=== PATIENT | male | born 1985 | race Caucasian/White ===

== ENCOUNTER → 2018-10-24 | Outpatient (CLI) | payer OTHER ==
[~2018-10-24] MED LIST: CEFU500T30 PO; Vsl#3 Capsule1 EACH PO
[2018-10-24 18:27] LABS: BASOPHILS ABSOLUTE AUTO 0.05 K/mm3 (0.00-0.23); BASOPHILS PERCENT AUTO 1 % (0-2); EOSINOPHILS ABSOLUTE AUTO 0.11 K/mm3 (0.00-0.68); EOSINOPHILS PERCENT AUTO 1 % (0-6); Hematocrit 45.5 % (37.0-53.0); Hemoglobin 15.4 g/dL (13.5-17.5); IMMATURE GRAN ABSOLUTE AUTO 0.01 K/mm3 (0.00-0.10); IMMATURE GRAN PERCENT AUTO 0 % (0-1); LYMPHOCYTES PERCENT AUTO 19 % (21-46); MONOCYTES ABSOLUTE AUTO 0.99 K/mm3 (0.16-1.47); MONOCYTES PERCENT AUTO 10 % (4-13); Mean Corpuscular HGB 28.8 pg (26.0-34.0); Mean Corpuscular HGB Conc 33.8 g/dL (31.5-36.5); Mean Corpuscular Volume 85 fL (80-100); Mean Platelet Volume 10.1 fL (9.1-12.4); NEUTROPHILS ABSOLUTE AUTO 6.64 K/mm3 (1.96-9.15); NEUTROPHILS PERCENT AUTO 69 % (41-73); Platelet Count 315 K/mm3 (150-400); RDW Coefficient Variation 11.3 % (11.7-14.2); RDW Standard Deviation 34.7 fL (35.1-46.3); Red Blood Cell Count 5.34 M/mm3 (4.30-5.90)
[2018-10-24 18:39] LABS: Alanine Aminotransfer (ALT/SGP 41 U/L (12-78); Albumin, Blood 4.4 g/dL (3.4-5.0); Albumin/Globulin Ratio 1.2 (0.8-1.8); Alk Phos 116 U/L (50-136); Anion Gap 4 mmol/L (6-16); Aspartate Aminotrans (AST/SGOT 18 U/L (12-37); Bilirubin, Total 0.7 mg/dL (0.1-1.0); Blood Urea Nitrogen 10 mg/dL (8-24); Bun/Creatinine Ratio 8.8 (12.0-20.0); CO2, Blood 31 mmol/L (21-32); Calcium, Blood 9.5 mg/dL (8.5-10.1); Chloride, Blood 103 mmol/L (98-108); Creatinine, Blood 1.14 mg/dL (0.60-1.20); Globulin, Blood 3.6 g/dL (2.2-4.0); Glomerular Filtration Rate >60 (60-); Glucose, Blood 95 mg/dL (70-99); Potassium, Blood 3.8 mmol/L (3.5-5.5); Sodium, Blood 138 mmol/L (136-145)
== END | disposition home or self-care (01) ==
LOC: LAB 18:19 → LAB SHORT 18:19
PROVIDERS: Physician Assistant
DX: L98.9 Disorder of the skin and subcutaneous tissue, unspecified (principal); R53.83 Other fatigue
CPT/HCPCS: 80053; 85025

== ENCOUNTER 2018-10-25 11:34 | Inpatient (IN) | payer OTHER ==
[~2018-10-25] VITALS: Ht 180.3 cm; Wt 81.7 kg
[2018-10-25 12:16] LABS: BASOPHILS ABSOLUTE AUTO 0.04 K/mm3 (0.00-0.23); BASOPHILS PERCENT AUTO 1 % (0-2); EOSINOPHILS ABSOLUTE AUTO 0.09 K/mm3 (0.00-0.68); EOSINOPHILS PERCENT AUTO 1 % (0-6); Hematocrit 44.6 % (37.0-53.0); Hemoglobin 15.3 g/dL (13.5-17.5); IMMATURE GRAN ABSOLUTE AUTO 0.02 K/mm3 (0.00-0.10); IMMATURE GRAN PERCENT AUTO 0 % (0-1); LYMPHOCYTES ABSOLUTE AUTO 1.46 K/mm3 (0.84-5.20); LYMPHOCYTES PERCENT AUTO 18 % (21-46); MONOCYTES ABSOLUTE AUTO 0.75 K/mm3 (0.16-1.47); MONOCYTES PERCENT AUTO 9 % (4-13); Mean Corpuscular HGB 29.8 pg (26.0-34.0); Mean Corpuscular HGB Conc 34.3 g/dL (31.5-36.5); Mean Corpuscular Volume 87 fL (80-100); Mean Platelet Volume 9.8 fL (9.1-12.4); NEUTROPHILS ABSOLUTE AUTO 5.73 K/mm3 (1.96-9.15); NEUTROPHILS PERCENT AUTO 71 % (41-73); Platelet Count 298 K/mm3 (150-400); RDW Coefficient Variation 11.2 % (11.7-14.2); RDW Standard Deviation 35.8 fL (35.1-46.3); Red Blood Cell Count 5.13 M/mm3 (4.30-5.90); White Blood Cell Count 8.09 K/mm3 (4.00-11.30)
[2018-10-25 12:41] LABS: Alanine Aminotransfer (ALT/SGP 36 U/L (12-78); Albumin, Blood 4.2 g/dL (3.4-5.0); Albumin/Globulin Ratio 1.1 (0.8-1.8); Alk Phos 116 U/L (50-136); Anion Gap 7 mmol/L (6-16); Aspartate Aminotrans (AST/SGOT 17 U/L (12-37); Bilirubin, Total 0.9 mg/dL (0.1-1.0); Blood Urea Nitrogen 13 mg/dL (8-24); Bun/Creatinine Ratio 10.7 (12.0-20.0); CO2, Blood 27 mmol/L (21-32); Calcium, Blood 9.2 mg/dL (8.5-10.1); Chloride, Blood 105 mmol/L (98-108); Creatinine, Blood 1.21 mg/dL (0.60-1.20); Globulin, Blood 3.9 g/dL (2.2-4.0); Glomerular Filtration Rate >60 (60-); Glucose, Blood 95 mg/dL (70-99); Sodium, Blood 139 mmol/L (136-145); Total Protein, Blood 8.1 g/dL (6.4-8.2)
[2018-10-25 12:42] LABS: Troponin I <0.015 ng/mL (0.000-0.040)
[2018-10-25 12:45] LABS: Magnesium, Blood 2.2 mg/dL (1.6-2.4)
[2018-10-25 12:50] LABS: Thyroid Stimulating Hormone 1.94 uIU/mL (0.360-4.800)
--- NOTE | 2018-10-25 15:11 | NUR ---
Echocardiogram completed.
--- NOTE | 2018-10-25 15:30 | NUR ---
PT ARRIVED TO PCU 16 VIA GURNEY FROM ED. REPORT WAS GIVEN, PT IS ABLE TO STAND AND TRANSFER TO BED INDEP, HE IS A/OX3, PLEASANT AND COOPERATIVE WITH CARE, FOLLOWS COMMANDS WELL, DENIES ANY SYMPTOMS AT THIS TIME, STATES HIS SYMPTOMS STARTED THIS AM, JUST CHEST HEAVINESS, NO DIZZINESS OR SOB, LUNGS ARE CLEAR T/O, RESP EVEN AND UNLABORED, NO COUGH NOTED, HRIRR, TELE IN PLACE RUNNING 2 BLOCK, SEE STRIP, NO EDEMA NOTED, IV SITE TO ROSS, SITE IS CLEAR AND PATENT, BTX4, ABD FLAT SOFT NONTENDER, VOIDS WITHOUT DIFF, SKIN HAS RASH TO LEFT HIP, WITH SOME HIP DISCOMFORT, MAEW, PARKER, CALL LIGHT IN REACH.
--- NOTE | 2018-10-25 18:00 | NUR ---
PT HEART RHYTHM IS UNCHANGED, HIS RATE IS IN THE 70'S TO 80'S, NOT SYMPTOMATIC. NO ACUTE CHANGES, CALL LIGHT IN REACH.
--- NOTE | 2018-10-25 20:24 | NUR ---
CARE ASSUMPTION PT A&O X4. VSS. RASH NOTED ON L OUTER HIP REGION. PT REPORTS RASH BEING PRESENT FOR LAST 2 WEEKS. EPISODE OF UNWITNESSED EMESIS @ APPROX 2000 IN WHICH PT REPORTS BRIEFLY GETTING LIGHTHEADED. PT DENIES NAUSEA PRIOR TO EMESIS AND DENIES WANT/NEED FOR PRN IV ANTIEMETIC. PT DENIES OTHER SYSMPTOMS AND STATES "IT CAME OUT OF NOWHERE. I GUESS I JUST HAD TO GET IT OUT OF MY SYSTEM." WILL CONTINUE TO MONITOR AND PROVIDE CARE.
--- NOTE | 2018-10-25 20:50 | NUR ---
PT REPORTING SECOND EPISODE OF EMESIS THIS SHIFT. PT MEDICATED W/ ZOFRAN PER EMAR/PT REQUEST. WILL CONTINUE TO MONITOR AND PROVIDE CARE.
[2018-10-26 04:27] LABS: BASOPHILS ABSOLUTE AUTO 0.04 K/mm3 (0.00-0.23); BASOPHILS PERCENT AUTO 0 % (0-2); EOSINOPHILS PERCENT AUTO 0 % (0-6); Hematocrit 42.9 % (37.0-53.0); Hemoglobin 14.8 g/dL (13.5-17.5); IMMATURE GRAN ABSOLUTE AUTO 0.05 K/mm3 (0.00-0.10); IMMATURE GRAN PERCENT AUTO 0 % (0-1); LYMPHOCYTES ABSOLUTE AUTO 0.96 K/mm3 (0.84-5.20); LYMPHOCYTES PERCENT AUTO 6 % (21-46); MONOCYTES ABSOLUTE AUTO 0.56 K/mm3 (0.16-1.47); MONOCYTES PERCENT AUTO 4 % (4-13); Mean Corpuscular HGB 29.2 pg (26.0-34.0); Mean Corpuscular HGB Conc 34.5 g/dL (31.5-36.5); Mean Corpuscular Volume 85 fL (80-100); Mean Platelet Volume 9.8 fL (9.1-12.4); NEUTROPHILS ABSOLUTE AUTO 13.28 K/mm3 (1.96-9.15); NEUTROPHILS PERCENT AUTO 89 % (41-73); Platelet Count 295 K/mm3 (150-400); RDW Coefficient Variation 11.2 % (11.7-14.2); RDW Standard Deviation 34.4 fL (35.1-46.3); Red Blood Cell Count 5.06 M/mm3 (4.30-5.90); White Blood Cell Count 14.89 K/mm3 (4.00-11.30)
--- NOTE | 2018-10-26 04:40 | NUR ---
SHIFT SUMMARY PT A&O X4. MONITOR CONTINUES TO SHOW 2:1 BLOCK W/ HR AVERAGING 45-60 THIS SHIFT W/ BRIEF TOUCH DOWN TO 38 BPM WHILE SLEEPING, SEE PRINTED STRIP IN CHART. UPON PT WAKING, PT REPORTS "THAT WAS THE BEST SLEEP I'VE HAD IN A LONG TIME. I FEEL COMPLETELY RESTED." PT MADE AWARE OF LOW HR. OTHERWISE VSS. 2 EPISODES OF EMESIS THIS SHIFT, PT MEDICATED PER EMAR/PT REQUEST, SEE PREVIOUS NOTES. PT'S SPOUSE AND 3 CHILDREN IN TO SEE PT THIS SHIFT. WILL CONTINUE TO MONITOR AND PROVIDE CARE UNTIL REPORT OFF TO DAY SHIFT RN.
[2018-10-26 05:14] LABS: Alanine Aminotransfer (ALT/SGP 34 U/L (12-78); Albumin, Blood 3.8 g/dL (3.4-5.0); Alk Phos 119 U/L (50-136); Anion Gap 6 mmol/L (6-16); Aspartate Aminotrans (AST/SGOT 17 U/L (12-37); Bilirubin, Total 1.3 mg/dL (0.1-1.0); Blood Urea Nitrogen 16 mg/dL (8-24); Bun/Creatinine Ratio 12.3 (12.0-20.0); CO2, Blood 28 mmol/L (21-32); Calcium, Blood 9.2 mg/dL (8.5-10.1); Chloride, Blood 104 mmol/L (98-108); Globulin, Blood 3.7 g/dL (2.2-4.0); Glomerular Filtration Rate >60 (60-); Glucose, Blood 125 mg/dL (70-99); Potassium, Blood 4.6 mmol/L (3.5-5.5); Sodium, Blood 138 mmol/L (136-145); Total Protein, Blood 7.5 g/dL (6.4-8.2)
--- NOTE | 2018-10-26 09:54 | NUR ---
PT UP IN ROOM, GAIT STEADY, IN ROOM WITH HIM, A/OX3, PLEASANT AND COOPERATIVE WITH CARE, FOLLOWS COMMANDS WELL, DENIES PAIN, BUT STATES HE DID VOMIT TWICE LAST NIGHT, BUT IS FINE AND FEELS GOOD THIS AM, LUNGS CLEAR, HRIR, TELE IN PLACE RUNNING 2ND DEGREE BLOCK, TYPE 1 PER DIGITAL STRATEGY DIRECTOR, SEE STRIP, NO EDEMA NOTED, PPP+2, CAP REFILL <3SEC, VS STABLE, AFEBRILE, IV SITE TO ROSS SITE IS CLEAR AND PATENT, BTX4, ABD FLAT SOFT NONTENDER, VOIDS WITHOUT DIFF, SKIN C/W/D, MAEW, PARKER, CALL LIGHT IN REACH.
--- NOTE | 2018-10-26 12:26 | NUR ---
PT RESTING IN BED, WATCHING TV, RYTHM UNCHANGED. CALL LIGHT IN REACH.
--- NOTE | 2018-10-26 19:30 | NUR ---
1900 ASSUMED CARE OF PATIENT. PATIENT IS OUT OF ROOM FOR WALK. WILL PERFORM FULL ASSESSMENT IN [facility] SHIFT ASSESSMENT WHEN HE RETURNS
--- NOTE | 2018-10-27 05:09 | NUR ---
PATIENT RESTING IN BED, BED IN LOW POSITION, CALL LIGHT IN REACH AND ROOM TIDIED. NO CHANGES T/O SHIFT WILL CONTINUE TO MONITOR.
[2018-10-27 08:23] LABS: BASOPHILS ABSOLUTE AUTO 0.04 K/mm3 (0.00-0.23); BASOPHILS PERCENT AUTO 1 % (0-2); EOSINOPHILS ABSOLUTE AUTO 0.19 K/mm3 (0.00-0.68); EOSINOPHILS PERCENT AUTO 4 % (0-6); Hemoglobin 14.5 g/dL (13.5-17.5); IMMATURE GRAN ABSOLUTE AUTO 0.01 K/mm3 (0.00-0.10); IMMATURE GRAN PERCENT AUTO 0 % (0-1); LYMPHOCYTES ABSOLUTE AUTO 1.55 K/mm3 (0.84-5.20); LYMPHOCYTES PERCENT AUTO 35 % (21-46); MONOCYTES ABSOLUTE AUTO 0.61 K/mm3 (0.16-1.47); MONOCYTES PERCENT AUTO 14 % (4-13); Mean Corpuscular HGB 29.7 pg (26.0-34.0); Mean Corpuscular HGB Conc 34.5 g/dL (31.5-36.5); Mean Corpuscular Volume 86 fL (80-100); NEUTROPHILS ABSOLUTE AUTO 2.06 K/mm3 (1.96-9.15); NEUTROPHILS PERCENT AUTO 46 % (41-73); Platelet Count 264 K/mm3 (150-400); RDW Coefficient Variation 11.5 % (11.7-14.2); RDW Standard Deviation 35.5 fL (35.1-46.3); Red Blood Cell Count 4.89 M/mm3 (4.30-5.90); White Blood Cell Count 4.46 K/mm3 (4.00-11.30)
--- NOTE | 2018-10-27 08:32 | NUR ---
AM NOTE. ASSUMED CARE OF PT APROX 0700. PT IS A&Ox4 AND IND IN THE ROOM. PT WAS ADMITTED WITH 2:1 HEART BLOCK MOST LIKELY CAUSED BY LYME'S DISEASE. PT IS GETTING ANTIBIOTICS AND WAITING ON TEST RESULTS TO CONFIRM DIAGNOSIS. PT'S HR IS CURRENTLY IN THE 50'S. L/S CLEAR T/O. BT PRESENT AND NORMOACTIVE, ABD IS SOFT AND NONTENDER TO PALP. RASH IS PRESENT ON THE PT'S RIGHT HIP. WILL CONTINUE TO MONITOR.
[2018-10-27 08:36] LABS: Alanine Aminotransfer (ALT/SGP 29 U/L (12-78); Albumin, Blood 3.7 g/dL (3.4-5.0); Alk Phos 100 U/L (50-136); Anion Gap 4 mmol/L (6-16); Aspartate Aminotrans (AST/SGOT 12 U/L (12-37); Bilirubin, Total 0.5 mg/dL (0.1-1.0); Blood Urea Nitrogen 14 mg/dL (8-24); Bun/Creatinine Ratio 12.3 (12.0-20.0); CO2, Blood 32 mmol/L (21-32); CPK Creatine Kinase 53 U/L (39-308); Calcium, Blood 9.1 mg/dL (8.5-10.1); Chloride, Blood 106 mmol/L (98-108); Creatinine, Blood 1.14 mg/dL (0.60-1.20); Globulin, Blood 3.6 g/dL (2.2-4.0); Glomerular Filtration Rate >60 (60-); Glucose, Blood 109 mg/dL (70-99); Potassium, Blood 4.2 mmol/L (3.5-5.5); Sodium, Blood 142 mmol/L (136-145); Total Protein, Blood 7.3 g/dL (6.4-8.2)
--- NOTE | 2018-10-27 18:22 | NUR ---
SHIFT SUMMARY. NO ACUTE CHANGES NOTED THIS SHIFT. PT IS STILL IN 2:1 HEART BLOCK, PT'S VS HAVE BEEN STABLE. PT DENIES ANY CHEST PAIN/PRESSURE, N/V OR SOB. PT HAS BEEN IND IN THE ROOM AND HAS TAKEN MULTIPLE WALKS IN THE HOSPTIAL. CALL LIGHT IN REACH, BED IS LOCKED AND LOW WILL CONTINUE TO MONITOR UNTIL REPORT IS GIVEN TO ONCOMING RN.
--- NOTE | 2018-10-28 06:10 | NUR ---
Shift Summary Pt with no acute events overnight. Sleeping throughout majority of shift, VSS, breathing easy and unlabored. Pt with asx bradycardia all shift trending at 39 and dipping as low as 33 at times. No changes from initail shift assessment. Pt independant in room, calls appropriately, alert and oriented, makes needs known. Awaiting lyme disease results at this time. will continue to monitor and provide care per orders.
--- NOTE | 2018-10-28 09:34 | NUR ---
AM NOTE. ASSUMED CARE OF PT APROX 0700. PT IS A&Ox4 AND IND IN THE ROOM. PT WAS ADMITTED FOR 2:1 HEART BLOCK AND IS CURRENTLY WAITING ON TEST RESULTS FOR LYME'S DISEASE. PT ASYMTOMATIC WITH HEART RATE IN THE 40'S. PT DENIES CHEST PAIN/PRESSURE, N/V, SOB OR LIGHTHEADED/DIZZINESS. L/S CLEAR T/O, BT PRESENT AND NORMOACTIVE, ABD IS SOFT AND NONTENDER TO PALP. WILL CONTINUE TO MONITOR.
--- NOTE | 2018-10-28 17:07 | NUR ---
SHIFT SUMMARY. NO ACUTE CHANGES NOTED THIS SHIFT. PT'S VS STABLE, PT'S HR HAS BEEN 39-40'S. PT DENIES ANY CHEST PAIN/PRESSURE, LIGHTHEADED/DIZZINESS. PT HAS BEEN UP AND TAKING WALKS T/O THE HOSPTIAL. PT HAD VISITORS SEVERAL TIMES TODAY. PT HAS BEEN IND IN THE ROOM AND IND WITH URINATION AND BMS. CALL LIGHT IN REACH, BED IS LOCKED AND LOW WILL CONTINUE TO MONITOR UNTIL REPORT IS GIVEN TO ONCOMING RN.
--- NOTE | 2018-10-29 05:38 | NUR ---
Shift Summary No acute changes. VSS. No apparent sign of distress. Pt breathing easy, even and unlabored. Sleeping throughout this shift, independant in room. Pt HR trending in 40's and 50's this shift, 2:1 heart block per tele, lowest HR noted this shift is 38. Pt asx with bradycardia. Alert and oriented, no changes from initial shift assessment. Awaiting lyme disease test results. Will continue to monitor and provide care per orders.
--- NOTE | 2018-10-29 08:20 | NUR ---
AM NOTE. AT APROX 0745 PT CONVERTED FROM 2:1 HEART BLOCK TO NSR IN THE 60'S-70'S. PT STATED THAT HE "FELT DIFFERENT." THIS WAS CONFIRMED ON TELE. PT'S VS STABLE AT THIS TIME. PT DENIES ANY CHEST PAIN/PRESSURE, N/V OR SOB. PT DENIES ANY LIGHTHEADED/DIZZINESS. PT IS IND IN THE ROOM. WILL CONTINUE TO MONITOR.
--- NOTE | 2018-10-29 17:32 | NUR ---
SHIFT SUMMARY. NO ACUTE NEGATIVE CHANGES NOTED THIS SHIFT. PT HAS BEEN IN NSR MORE THAN HE HAS BEEN IN THE 2ND DEGREE HEART BLOCK. PT HAS BEEN IND IN THE ROOM AND HAS TAKEN MULTIPLE WALKS AROUND THE HOSPTIAL. PT'S VS HAVE BEEN STABLE, PT DENIES ANY CHEST PAIN/PRESSURE, N/V OR SOB. PT STATES HE FEELS MUCH BETTER WHEN HIS HEART IS IN NSR AND HE CAN FEEL IT WHEN HE FLIPS BACK INTO THE HEART BLOCK. CALL LIGHT IN REACH, BED IS LOCKED AND LOW WILL CONTINUE TO MONITOR UNTIL REPORT IS GIVEN TO ONCOMING RN.
--- NOTE | 2018-10-30 06:19 | NUR ---
SHIFT SUMMARY PT SLEEPING IN ROOM COMFORTABLY AT THIS TIME. PT HAD NO ACUTE STATUS CHANGES T/O NIGHT. VITALS REMAINED STABLE, PT REPORTS FEELING MUCH BETTER. RESP EVEN UNLABORED ON RA W/ SATS >92%. DENIED ANY NEEDS. DENIED CP OR SOB. EKG DONE THIS AM. PT WAS INDEPENDENT IN ROOM T/O NIGHT TO RR, CALLS APPROPRIATELY. CALL LIGHT IN REACH.
[2018-10-30 11:08] LABS: IGG P18 AB. Absent (.); IGG P23 AB. Absent (.); IGG P28 AB. Absent (.); IGG P30 AB. Absent (.); IGG P39 AB. Present (.); IGG P41 AB. Present (.); IGG P45 AB. Absent (.); IGG P58 AB. Absent (.); IGG P66 AB. Absent (.); IGG P93 AB. Absent (.); IGM P23 AB. Present (.); IGM P39 AB. Absent (.); IGM P41 AB. Present (.); LYME IGG WB INTERP. Negative (.); LYME IGG/IGM AB 2.25 ISR (0.00-0.90); LYME IGM WB INTERP. Positive (.)
--- NOTE | 2018-10-30 12:44 | NUR ---
UPDATED DR BOB ABOUT CARDIOLOGY D/C SUGGESTIONS
[2018-10-30] MEDS ORDERED: CEFU500T30 PO (14:20)
[2018-10-30] MEDS ORDERED: Vsl#3 Capsule1 EACH PO (14:20)
--- NOTE | 2018-10-30 15:06 | NUR ---
DISCHARGE NOTE PT STABLE FOR DISCHARGE. IV REMOVED. DISCHARGE INSTRUCTIONS AND DISCHARGE MEDICATIONS REVIEWED WITH PT. PT VERBALIZES UNDERSTANDING AND DENIES QUESTIONS. PT DECLINED DISCHARGE VIA WHEELCHAIR, AMBULATED OUT WITH SPOUSE WITH BELONGINGS.
== END 2018-10-30 15:10 | disposition home or self-care (01) | DRG 868 ==
LOC: ER 11:34 → PCU 14:43
PROVIDERS: Emergency Medicine; ADMIT Internal Medicine
DX: A69.20 Lyme disease, unspecified (principal); N17.9 Acute kidney failure, unspecified; I44.30 Unspecified atrioventricular block; W57.XXXD Bitten or stung by nonvenomous insect and other nonvenomous arthropods, subsequent encounter
CPT/HCPCS: 36415; 71046; 80053; 82550; 83735; 83880; 84443; 84484; 85025; 86618; 93005; 93010; 93306; 96365; 99285-25; J0696; J2405